=== PATIENT | male | born 1965 | race Caucasian/White ===

== ENCOUNTER → 2016-10-26 | Outpatient (CLI) | payer BC ==
--- NOTE | 2016-10-26 14:13 | CT ---
HISTORY: Hematuria, left flank pain Study: CT abdomen and pelvis without contrast Comparison: 12/21/2015 Technique: Multiple axial images of the abdomen and pelvis were obtained without IV contrast. Oral contrast wa s not administered. Dose reduction techniques including Automated Exposure Control (AEC) and adjustm ent of mA and kV were utilized. Findings: The visualized portions of the lung bases are unremarkable. Hepatic steatosis is noted. The unenhan jazmyn appearance of the spleen, pancreas, and adrenal glands is within normal limits. The gallbladder is removed. There are multiple nonobstructing right-sided renal calculi. No stones are seen in the l eft kidney. The ureters are normal bilaterally. There is a stable phlebolith in the left pelvis near the distal ureter. The urinary bladder is unremarkable. No free intraperitoneal air. No evidence of intestinal obstruction or inflammation. Normal appendix. No free fluid. Sigmoid diverticulosis is noted without evidence of acute inflammation. The soft tissues and osseous structures are unremarkable. The vascular structures are unremarkable. No pathologically enlarged lymph nodes are identified. IMPRESSION: 1. Right nephrolithiasis without obstructive uropathy. 2. Hepatic steatosis. 3. Sigmoid diverticulosis. Reported By:
== END ==
LOC: RAD 13:14
PROVIDERS: ATTEND Internal Medicine
DX: R31.9 Hematuria, unspecified (principal)
CPT/HCPCS: 74176